=== PATIENT | male | born 1950 ===

== ENCOUNTER 2023-07-23 07:33 | Day surgery (SDC) | payer OTHER ==
[~2023-07-23] VITALS: Ht 175.3 cm; Wt 109.0 kg
[2023-07-23 08:17] VITALS: BP 162/64; PULSE 66; TEMP 98.5
[2023-07-23] MEDS ORDERED: ZOCOR 40MG40 MG PO (08:29)
[2023-07-23] MEDS ORDERED: HCTZ 25MG TAB25 MG PO (08:30)
[2023-07-23] MEDS ORDERED: INSULIN GL100 UNIT/1 SQ (08:31)
[2023-07-23] MEDS ORDERED: LASIX 20MG TABL20 MG PO (08:31)
[2023-07-23] MEDS ORDERED: NEURONTIN300 MG/CAP PO (08:32)
[2023-07-23] MEDS ORDERED: PRINIVIL40 MG PO (08:32)
[2023-07-23] MEDS ORDERED: NORVASC 10MG10 MG PO (08:33)
[2023-07-23] MEDS ORDERED: VOLTAREN GEL 1%1 TU TP (08:33)
[2023-07-23] MEDS ORDERED: NOVLOG SQ (08:34)
[2023-07-23] MEDS ORDERED: TYLENOL 325MG325 MG PO (08:35)
--- NOTE | 2023-07-23 09:00 | NUR ---
The patient ambulated back to [facility] with the use of his cane and a steady gait, he appeared to tolerate the activity well. Vital signs obtained. Consent signed. Asessment completed. Home medications reconcilled. 20G IV started in right hand with one stick, LR Infusing. Blood sugar checked with blood from IV start with a result of 88. Warm blanket provided. at bedside. Call light is wtihin reach. Denies any further needs.
--- NOTE | 2023-07-23 09:25 | NUR ---
0925 PATIENT RETURNS TO ROOM 7 VIA CART. PATIENT IS DROWSY BUT ALERTS TO VERBAL STIMULI. PATIENT AMBULATES TO RECLINER WITH THE ASSISTANCE OF 2 NURSES. RESPIRATIONS EVEN AND UNLABORED, ON ROOM AIR. VITAL SIGNS OBTAINED. PATIENT IN ROOM. PATIENT REQUESTED A WATER AND PUDDING. NO DIFFICULTIES SWALLOWING. 0945 THIS NURSE DISCONTINUED IV FROM RIGHT FOREARM WITH NO DIFFICULTIES. IV CATHETER INTACT. 0947 DOCTOR IN ROOM TO SPEAK WITH PATIENT. 0955 THIS NURSE REVIEWED DISCHARGE INSTRUCTIONS WITH PATIENT AND PATIENT . BOTH VERBALIZED UNDERSTANDING. 1005 PATIENT DISCHARGED FROM UNIT VIA WHEELCHAIR IN STABLE CONDITION.
[2023-07-23 10:25] VITALS: BP 91/59; PULSE 57; TEMP 98.5
--- NOTE | 2023-07-23 10:25 | NUR ---
1025 PATIENT RETURNS TO ROOM 1 VIA CART. PATIENT IS ALERT AND ORIENTED. PATIENT AMBULATES TO RECLINER WITH THE ASSISTANCE OF 2 NURSES. RESPIRATIONS EVEN AND UNLABORED, ON ROOM AIR. VITAL SIGNS OBTAINED. PATIENT IN ROOM. PATIENT REQUESTED A COFFEE, NO DIFFICULTIES SWALLOWING. 1040 DOCTOR IN ROOM TO SPEAK WITH PATIENT. 1050 THIS NURSE DISCONTINUED IV FROM RIGHT HAND WITH NO DIFFICULTIES. IV CATHETER INTACT. 1055 THIS NURSE REVIEWED DISCHARGE INSTRUCTIONS WITH PATIENT AND PATIENT . BOTH VERBALIZED UNDERSTANDING. 1110 PATIENT DISCHARGED FROM UNIT VIA WHEELCHAIR IN STABLE CONDITION.
[2023-07-23 10:40] VITALS: BP 104/62; PULSE 57
[2023-07-23 10:55] VITALS: BP 136/95; PULSE 58
== END 2023-07-23 11:10 | disposition home or self-care (01) ==
LOC: SDCO 07:33
DX: R19.5 Other fecal abnormalities (principal); K57.30 Diverticulosis of large intestine without perforation or abscess without bleeding; K64.0 First degree hemorrhoids; K59.00 Constipation, unspecified; Z87.891 Personal history of nicotine dependence
CPT/HCPCS: J2704; J7120